=== PATIENT | male | born 1975 | race Caucasian/White ===

== ENCOUNTER → 2019-09-07 | Outpatient (CLI) | payer OTHER ==
[~2019-09-07] MED LIST: DOXYCYCLINE 10100 MG PO; NAPROSYN500 MG PO; NOHOMEMEDICATIONS; NORCO 5-325 TA1 EACH PO; PERCOCET 5-3251 EACH PO
== END ==
LOC: SJCVCIMAG 11:26
DX: I77.819 Aortic ectasia, unspecified site (principal); E78.2 Mixed hyperlipidemia

== ENCOUNTER → 2020-09-18 | Outpatient (CLI) | payer OTHER | LOC: SJCVCIMAG 08:15 | PROVIDERS: ATTEND Internal Medicine | DX: I07.1 Rheumatic tricuspid insufficiency (principal); I25.10 Atherosclerotic heart disease of native coronary artery without angina pectoris; R00.2 Palpitations ==

== ENCOUNTER → 2021-09-19 | Outpatient (CLI) | payer OTHER | LOC: SJCVCIMAG 13:05 | PROVIDERS: ATTEND Internal Medicine | DX: R00.2 Palpitations (principal); Z88.0 Allergy status to penicillin ==